=== PATIENT | female | born 1930 | race Caucasian/White ===

== ENCOUNTER 2017-01-17 14:32 | Inpatient (IN) | payer MEDICARE, OTHER ==
[~2017-01-17] VITALS: Ht 170.2 cm; Wt 72.4 kg
[~2017-01-17 14:32] MED LIST: ASPI81TA PO; ATOR1TAB21 PO; BYST5TAB2 PO; CARD180C4 PO; CARD300C4 PO; CITRACAL PO; CITRTAB15 PO; COLA100C5 PO; CORE20CA PO; CORE6.25 PO; COUM1TAB19 PO; DESI100T PO; DESI25TA59 PO; DIGO0.127 PO; FERR1TAB8 PO; FLUV100T2 PO; FURO40TA2 PO; HEPA10004 SC; IMOD2TAB16 PO; K-TA1TAB PO; KLOR1TAB69 PO; LANS15CA PO; LASI40TA PO; LIPI20TA PO; MULT1TAB8 PO; PREV1CAP PO; TYLE325T5 PO; TYLE500T78 PO; VITA500C24 PO; XARE15TA PO; ZOFR4SOL IV; [UNRECOGNIZED DRUG - CODE] PO; [UNRECOGNIZED DRUG - CODE] PO
[2017-01-17] MEDS ORDERED: MORPHINE 2 MG/ML 1ML SYRINGE IV ONE (14:45)
[2017-01-17] MEDS ORDERED: ONDANSETRON 4MG/2ML VIAL (J2405) IV ONE ×2 (14:45→15:45)
[2017-01-17] MEDS ORDERED: FURO20TA2 PO (14:51)
--- NOTE | 2017-01-17 16:19 | REP ---
Clinical: Trauma. Technique: AP, lateral and bilateral oblique views of the right wrist. Findings: Comminuted Colles' fracture of the distal radius with posterior angulation and surrounding soft tissue swelling noted. Underlying osteopenia and degenerative changes are appreciated the carpal bones appear intact. Impression: Comminuted Colles' fracture of the distal radius. Signed by Helder Sandhu MD 01/17/2017 04:10 P
--- NOTE | 2017-01-17 18:14 | ECGEPIP ---
Stationary ECG Study [facility] - ED Test Date: 2017-01-17 Pat Name: PUMA DUCKWORTH Department: Room: - Gender: F Director Of It Operations: alondra : 1930 Requested By: Michelle Martin Order Number: [id number] Reading MD: Michelle Martin Measurements Intervals [place] Rate: 66 P: NC: 0 QRS: -31 QRSD: 102 T: 12 QT: 385 QTc: 404 Interpretive Statements ATRIAL FIBRILLATION MARKED LEFT AXIS DEVIATION MINIMAL VOLTAGE CRITERIA FOR LVH, CONSIDER NORMAL VARIANT DECREASED RATE 06/01/16 Electronically Signed On 01-17-2017 18:14:10 EDT by Michelle Martin
[2017-01-17] MEDS ORDERED: ASPI1TAB PO (18:30)
[2017-01-17] MEDS ORDERED: COLA100C5 PO (18:30)
[2017-01-17] MEDS ORDERED: MORPHINE 2 MG/ML 1ML SYRINGE IV PRN (18:45)
[2017-01-17] MEDS ORDERED: ACETAMINOPHEN 500 MG TAB PO PRN (18:45)
[2017-01-17] MEDS ORDERED: BISACODYL 5 MG TAB PO PRN (18:45)
[2017-01-17] MEDS ORDERED: DOCUSATE SODIUM 100 MG CAP PO PRN (18:45)
[2017-01-17] MEDS ORDERED: ONDANSETRON 4MG/2ML VIAL (J2405) IV PRN (18:45)
[2017-01-17 18:54] LABS: MEAN CORPUSCULAR HGB CONC 33.1 g/dl (32.0-36.5); MEAN CORPUSCULAR VOLUME 87.6 fl (80.0-96.0)
[2017-01-17 19:05] LABS: INR 1.91
--- NOTE | 2017-01-17 19:09 | REP ---
Clinical: Preoperative assessment . Comparison: 06/01/2016 . Technique: PA and lateral. Findings: The mediastinum includes stable moderate hiatal hernia. The cardiac silhouette is normal. Airway is midline and patent. The lung hutchins demonstrate chronic stable changes without acute consolidation, effusion, or pneumothorax. The skeletal structures are intact and normal. Impression: Chronic changes. No acute cardiopulmonary process. Signed by Helder Sandhu MD 01/17/2017 07:00 P
[2017-01-17 19:31] LABS: CREATININE FOR GFR 1.13 MG/DL (0.55-1.02); DIGOXIN LEVEL 1.1 NG/ML (0.5-2.0); GLOMERULAR FILTRATION RATE 48.8 (>32); POTASSIUM SERUM 4.3 MEQ/L (3.5-5.1)
[2017-01-17 20:10] VITALS: BP 118/55
[2017-01-17] MEDS: CARVedilol 6.25 MG TAB PO SCH (20:51)
[2017-01-17] MEDS ORDERED: DESIPRAMINE 25 MG TAB PO SCH (21:00)
[2017-01-17] MEDS ORDERED: fluvoxaMINE MALEATE 50 MG TAB PO SCH (21:00)
[2017-01-17] MEDS ORDERED: PHYTONADIONE 2.5 MG **1/2 TAB PO ONE (22:15)
[2017-01-17] MEDS ORDERED: PHYTONADIONE 5 MG TAB PO ONE (22:45)
--- NOTE | 2017-01-17 23:30 | HPE ---
DATE OF ADMISSION: 01/17/2017 PRIMARY CARE PROVIDER: Dr. Bunny Chavarria. CHIEF COMPLAINT: Right wrist pain. HISTORY OF PRESENT ILLNESS: The patient is an 86-year-old female who presented with right hand pain after a fall at home. She states that while she was descending down a few steps, she slipped, fell and landed on her right side. When she finally got up, she realized that she had pain on the right wrist and she came to the emergency department (ED) to be evaluated. An x-ray revealed a Colles fracture of the distal radius. She was given morphine for pain, was seen by orthopedic surgeon, Dr. Haley, who has planned for Colles reduction with external fixation of the right wrist in the morning. The patient denies headache, blurry vision, chest pain, cough, fever, chills, nausea or vomiting, diarrhea. PAST MEDICAL HISTORY: 1. Atrial fibrillation on anticoagulation with Xarelto. 2. History of gastrointestinal (GI) bleed secondary to non-steroidal anti-inflammatory drugs (NSAIDs) and Coumadin. 3. History of cerebrovascular accident (CVA) 3-4 years ago without residual weakness. 4. History of dyslipidemia. 5. History of gastroesophageal reflux disease (GERD). 6. Depression. PAST SURGICAL HISTORY: 1. Bilateral mastectomy, right side in 1998, left side in 2000. 2. Appendectomy. 3. Cholecystectomy. 4. Squamous cell cancer status post resection. FAMILY HISTORY: Mother had heart disease, at age 46. Father also had heart disease, at age 72. No history of malignant cancers or osteoporosis. SOCIAL HISTORY: The patient denies smoking, alcohol abuse and recreational drug use. She denies any recent travel or sick contacts. She lives with her . 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 ALLERGIES TO MEDICATIONS: SULFA and IODINE. HOME MEDICATIONS: - Xarelto 15 mg once a day - Citrucel Plus one tablet daily - lansoprazole 30 mg tablet once a day - multivitamin one tablet once daily - acetaminophen 500 mg two tablets by mouth at bedtime as needed for pain - aspirin 81 mg once a day - atorvastatin 20 mg once daily - carvedilol 6.25 mg by mouth twice a day - desipramine 25 mg tablet, she takes (please verify) mg by mouth at bedtime - digoxin 0.125 mg tablet daily - docusate sodium 100 mg once a day for constipation - fluvoxamine 100 mg daily and 200 mg at bedtime - Lasix 20 mg once a day - potassium chloride 20 mEq every other day PHYSICAL EXAMINATION: VITAL SIGNS: Blood pressure 112/56, pulse 84, respiratory rate 18, oxygen saturation 94% on room air, temperature 97.2 degrees Fahrenheit. GENERAL: She is alert and oriented to person, place, time and circumstance, in mild distress secondary to pain in the right wrist. She is lying comfortably in bed. HEENT: Pupils are equal, round and reactive to light. Extraocular muscles are intact. Anicteric sclerae. Mucous membranes are dry. NECK: No audible bruits appreciated in her neck. No adenopathy. CARDIOVASCULAR SYSTEM: S1, S2 present. Rate is irregular. RESPIRATORY SYSTEM: Lungs are clear to auscultation bilaterally. GASTROINTESTINAL (GI): Abdomen is soft, nontender, nondistended. Bowel sounds are normal. No guarding, no rebound. RECTAL EXAMINATION: Deferred. GENITOURINARY (): Deferred. MUSCULOSKELETAL SYSTEM: She does have bilateral pedal edema. She has no calf tenderness or cyanosis. She does have dressing around her right wrist. As a result, she has limited motion of that wrist. NEUROLOGY: No focal findings. No sensory deficits. SKIN: There are multiple skin tags on the face and the neck. The skin is also warm and dry. LABORATORY DATA: Hematology: White blood cell count 12, hemoglobin 11.4, hematocrit 34.4, platelets 298. Chemistry: Sodium 141, potassium 4.3, chloride 105, bicarbonate 28, BUN 22, creatinine 1.13. Fasting glucose 125, calcium 9.0. Coagulopathy: INR 1.91, PT 22.5. Toxicology: Digoxin level 1.1. IMAGING: Chest x-ray with chronic changes. No acute cardiopulmonary disease. X-ray of the wrist: Comminuted Colles fracture of the distal radius. IMPRESSION: 1. Right distal Colles radius fracture. 2. History of chronic atrial fibrillation. Rate is controlled. Patient is on anticoagulation with Xarelto, which is currently being held in preparation for surgery. 3. History of essential hypertension. Blood pressure is stable. 4. History of gastroesophageal reflux disease and dyslipidemia, also stable on current medications. 5. Medical clearance. PLAN: The patient is admitted to medical/surgical floor. Continue morphine as needed for pain control. Resume her needed chronic medications except for Xarelto in preparation for surgery. Surgery was discussed with the patient which includes but not limited to infection, excessive bleeding, even . The patient understands and is willing to undergo surgery. Given her age and heart disease, she falls into a moderate risk for an intermediate orthopedic risk of surgery. INR level happens to be 1.9. She will be getting 2.5 mg of vitamin K tonight, and INR to be followed up in the morning. It would be advisable to wait 48 hours for the cessation of Xarelto to initiate surgery.
[2017-01-18 06:00] VITALS: BP 132/65
[2017-01-18 06:17] LABS: BASO % 0.4 % (0.0-1.0); EOS # 0.1 K/mm3 (0.0-0.50); EOS % 1.5 % (0.0-3.0); INR 1.33; LARGE UNSTAINED CELL # 0.1 K/mm3 (0.0-0.4); LARGE UNSTAINED CELL % 1.3 % (0.0-4.0); LYMPH # 1.5 K/mm3 (1.5-4.5); LYMPH % 15.5 % (24.0-44.0); MEAN CORPUSCULAR HEMOGLOBIN 29.1 pg (27.0-33.0); MEAN CORPUSCULAR HGB CONC 33.1 g/dl (32.0-36.5); MEAN CORPUSCULAR VOLUME 87.9 fl (80.0-96.0); MONO # 0.6 K/mm3 (0.0-0.8); MONO % 6.3 % (0.0-5.0); NEUTROPHILS # 6.9 K/mm3 (1.8-7.7); PLATELET COUNT, AUTOMATED 298 k/mm3 (150-450); WHITE BLOOD COUNT 9.2 K/mm3 (4.0-10.0)
[2017-01-18 06:38] LABS: ALBUMIN 2.8 GM/DL (3.2-5.2); ALBUMIN/GLOBULIN RATIO 0.72 (1.00-1.93); BILIRUBIN,TOTAL 0.3 MG/DL (0.2-1.0); CALCIUM LEVEL 8.7 MG/DL (8.8-10.2); CREATININE FOR GFR 1.04 MG/DL (0.55-1.02); GLOMERULAR FILTRATION RATE 53.7 (>32); POTASSIUM SERUM 3.7 MEQ/L (3.5-5.1); TOTAL PROTEIN 6.7 GM/DL (6.4-8.2)
[2017-01-18] MEDS ORDERED: ACETAMINOPHEN TAB 650MG DOSE (2X325MG) PO PRN (08:00)
[2017-01-18] MEDS ORDERED: MORPHINE 2 MG/ML 1ML SYRINGE IV PRN (08:00)
[2017-01-18] MEDS ORDERED: PERCOCET 5MG/325MG TAB PO PRN (08:00)
[2017-01-18] MEDS ORDERED: ceFAZolin SOD 1 GM in D5W MINI-BAG PLUS 50 ML IV ONE (08:00)
[2017-01-18 08:23] VITALS: BP 134/83
[2017-01-18] MEDS: CARVedilol 6.25 MG TAB PO SCH (08:23)
[2017-01-18] MEDS ORDERED: BUPIVACAINE/EPIN 0.25% 30 ML VIAL As Ordered ONE (08:40)
[2017-01-18] MEDS ORDERED: ceFAZolin 1GM INJ (J0690) As Ordered ONE (08:40)
[2017-01-18] MEDS ORDERED: LIDOCAINE 2% INJ 100 MG/5 ML SDV (FOR ANES.) As Ordered ONE (08:42)
[2017-01-18] MEDS ORDERED: PROPOFOL 200 MG/20 ML VIAL As Ordered ONE (08:42)
[2017-01-18] MEDS ORDERED: ONDANSETRON 4MG/2ML VIAL (J2405) As Ordered ONE (08:42)
[2017-01-18] MEDS ORDERED: fentaNYL 100 MCG/2 ML INJECTION (J3010) As Ordered ONE ×2 (08:43→11:16)
[2017-01-18] MEDS ORDERED: MIDAZOLAM INJ 2 MG/2 ML VIAL (J2250) As Ordered ONE (08:43)
[2017-01-18] MEDS ORDERED: ASPIRIN 81 MG ENTERIC TAB PO SCH (09:00)
[2017-01-18] MEDS ORDERED: FUROSEMIDE 20 MG TAB PO SCH (09:00)
[2017-01-18] MEDS ORDERED: DOCUSATE SODIUM 100 MG CAP PO SCH (09:00)
[2017-01-18] MEDS ORDERED: PANTOPRAZOLE 40MG TAB (PROTONIX) PO SCH (09:00)
[2017-01-18] MEDS ORDERED: ASCORBIC ACID 500 MG TAB PO SCH (09:00)
[2017-01-18] MEDS ORDERED: POTASSIUM CHLORIDE 10 MEQ SR TABLET PO SCH (09:00)
[2017-01-18] MEDS ORDERED: fluvoxaMINE MALEATE 50 MG TAB PO SCH (09:00)
[2017-01-18] MEDS ORDERED: ATORVASTATIN 20 MG TAB PO SCH (09:00)
[2017-01-18] MEDS ORDERED: DIGOXIN 0.125 MG TAB PO SCH (09:00)
[2017-01-18] MEDS ORDERED: ePHEDrine SULFATE 25 MG/5 ML(5MG/ML) SYRINGE As Ordered ONE (10:03)
[2017-01-18] MEDS ORDERED: ONDANSETRON 4MG/2ML VIAL (J2405) IV PRN (11:00)
[2017-01-18] MEDS ORDERED: fentaNYL 100 MCG/2 ML INJECTION (J3010) IV PRN (11:00)
--- NOTE | 2017-01-18 11:26 | REP ---
Clinical: Status post fixation. Technique: Real time fluoroscopic imaging. Findings: Intraoperative fluoroscopic images demonstrate the patient to be status post fixation for distal radial metaphyseal fracture. Satisfactory alignment is appreciated. Total fluoroscopic time 25 seconds. Impression: Status post fixation. Signed by Helder Sandhu MD 01/18/2017 11:17 A
[2017-01-18 12:00] VITALS: BP 136/79
[2017-01-18 12:30] VITALS: BP 141/94
[2017-01-18 13:00] VITALS: BP 150/82
[2017-01-18 14:00] VITALS: BP 122/54
--- NOTE | 2017-01-18 15:28 | IPN ---
DATE: 01/18/2017 SUBJECTIVE: Today the patient tells me that she has some achiness on the right wrist, but otherwise she is doing quite well. Has no complaints. She is eager to go and get the surgery completed this morning. OBJECTIVE: VITAL SIGNS: Temperature 98.4, pulse 86, respiratory rate 20, blood pressure 132/65, oxygen saturation 95% on room air. GENERAL: She is a pleasant, elderly female sitting up in bed, wearing an [place] wrap. She does not appear to be in acute distress. HEENT: Cranial nerves III through XII are grossly intact. She has moist mucous membranes. No elevation of jugular venous pulse (JVP). CARDIOVASCULAR: S1, S2, irregularly irregular. No distant heart sounds are appreciated. RESPIRATORY: Exam is clear. ABDOMEN: Benign. EXTREMITIES: Her right upper extremity is [place] wrapped. Dressing is clean, dry and intact. LABORATORY DATA: Today, WBC 9.2, hemoglobin 10.9, hematocrit 21.9, platelet count 298. Chemistry panel: Sodium 142, potassium 3.7, chloride 105, bicarbonate 32, BUN 21, creatinine 1.0. INR this morning is 1.3. IMAGING: A wrist x-ray yesterday revealed comminuted Colles fracture of the distal radius. Preoperative chest x-ray reveals chronic changes. ASSESSMENT AND PLAN: This is an 86-year-old female status post mechanical fall. 1. Mechanical fall and Colles fracture. She slipped while climbing her four steps to enter her home which were slippery. She does have a right distal Colles fracture. She has been seen by Dr. Haley of orthopedic surgery and the plan is to go to the operating room this morning. I have written a paper note in the chart, stating that the patient although she is quite a poor historian, tells me she was able to climb two flights of stairs without difficulty. Given her comorbidities, she has moderate risk for perioperative events; however, she requires no further testing prior to going to the operating room. Normally a 24-hour watch period off Xarelto is needed. The patient tells the nurses she is unable to recall when she last took her Xarelto. She tells me that she last took it yesterday at 1 p.m. but before breakfast. She informs orthopedic surgery that she had taken it the day before, before breakfast. She was in the emergency room by 2:30 in the afternoon yesterday. We will defer to orthopedic surgery regarding bleeding risk and the most appropriate timing for surgery. 2. Atrial fibrillation. The patient's Xarelto is currently on hold. She is rate controlled with digoxin. We will restart the Xarelto in the near future. Please note she is on Coreg. 3. Hypertension. She is on Coreg, 4. Gastroesophageal reflux disease. The patient is on Protonix. 5. Dyslipidemia. The patient is on Lipitor. 6. History of cerebrovascular accident (CVA) without residual deficits. The patient is on aspirin and statin. 7. Depression. The patient is on fluvoxamine and Norpramin. DISPOSITION: Postoperatively, the patient will receive physical therapy/occupational therapy (PT/OT). She likely will be discharged back to her previous living environment when cleared by them and orthopedic surgery.
[2017-01-18] MEDS ORDERED: AMIODARONE HCL 150 MG/100 ML PREMIXED BAG (NEXTERONE) ONE (18:49)
[2017-01-18] MEDS ORDERED: SODIUM BICARBONATE 8.4% INJ 50MEQ 50 ML VIAL ONE (18:49)
[2017-01-18] MEDS ORDERED: AMIODARONE 150MG/3ML INJ (J0282) ONE (18:49)
[2017-01-18] MEDS ORDERED: EPINEPHrine 1MG/10ML SYRINGE 1.5IN ONE (18:49)
--- NOTE | 2017-01-18 21:31 | DSES ---
DATE OF ADMISSION: 01/17/2017 DATE OF : 01/18/2017 CAUSE OF : Aspiration. SECONDARY CAUSE: Respiratory arrest. HOSPITAL COURSE: The patient is an 86-year-old female with a history of atrial fibrillation and associated CVA several years ago, gastrointestinal bleed, dyslipidemia, gastroesophageal reflux disease (GERD), depression, hypertension, who presented to the hospital after having a mechanical fall while slipping on some slippery steps at home, fracturing her right wrist. She was risk stratified this morning by myself and last evening by Dr. Carey. She was felt to be moderate risk with no further testing required prior to proceeding to surgery. I did speak with Dr. Haley following her surgery and she had tolerated the procedure very well and his case was uncomplicated and no excessive bleeding was noted. The patient, postoperatively, did well in the postanesthesia care unit and on the medical floor. She did not have significant pain. This afternoon following surgery, she received a single Percocet, but was requiring no IV pain medication. She did eat lunch, which she tolerated quite well in the presence of her . This evening the patient was eating spaghetti and zucchini and the stated that she began to choke. When she became unresponsive, he did leave the room and ask for a nurse to come and help. Nursing staff from [address] [place] [address] presented and found the patient unresponsive and called the [employer] at 6:00 p.m. I was notified about the change in the patient's status by the nursing glass cut off supervisor at 6:17 p.m. I was present at bedside by 6:[address] Carey was present at bedside at the time of my arrival. In the interim, the patient had been undergoing advanced cardiac life support ( ACLS). She received several cycles of epinephrine, amiodarone bolus and bicarbonate. Dr. Queen from the emergency room graciously presented to bedside to perform endotracheal intubation. During intubation, a significant amount of food particle matter was removed from the airway. The patient was briefly able to have return of circulation but unstable rhythm and quickly returned to pulseless v-tach. When I presented to the bedside after being brought up to speed with the situation, I did speak with the patient's , who was sitting next to her throughout the entire resuscitative efforts and during the initial choking episode. I did explain to him that it had been 30 minutes without any significant improvement or return of circulation and I did not feel that any further efforts would benefit the patient and he agreed with cessation of efforts. The patient was pronounced. Next of kin is bedside and aware of the situation. He will notify additional family. I did personally speak with the [facility] office who agreed with the cause of after hearing all pertinent details of the case from both myself and the nursing glass cut off supervisor and agreed there was no role for autopsy in this unfortunate case. I did call and speak with Dr. Haley and informed him of the events that occurred. SUMAYA
--- NOTE | 2017-01-19 08:30 | ER ---
DATE OF CONSULTATION: CHIEF COMPLAINT: Right wrist pain. HISTORY OF PRESENT ILLNESS: 86-year-old patient from [place] who fell at home after coming out of the door. She clarified that she did not fall down the steps, she fell near the steps and landed on her right upper extremity. No loss of consciousness. Wrist pain. She came to the ER to be evaluated. Imaging studies reflecting comminuted distal radius with significant displacement apex anterior 45 degrees angulation. MEDICAL HISTORY: Atrial fibrillation on Xarelto. GI bleed. Cerebrovascular accident. Dyslipidemia. Reflux. Depression. Forgetfulness since her cerebrovascular accident/trouble with short-term memory since cerebrovascular accident. Breast cancer. PAST SURGICAL HISTORY: Includes Bilateral mastectomies. Appendectomy. Cholecystectomy. Resection of squamous cell cancer. FAMILY HISTORY: Not contributory. SOCIAL HISTORY: Does not smoke or drink. She is accompanied by her of 59 years. 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 ALLERGIES: SULFA, IODINE. MEDICATIONS AT HOME: Include - Xarelto Citrucel - lansoprazole - multivitamins - Tylenol - aspirin 81 mg daily - atorvastatin - carvedilol - desipramine - digoxin - Colace - fluvoxamine - Lasix - potassium CLINICAL EXAMINATION: She is alert, oriented and cooperative. Mood and affect are appropriate. Very pleasant. She did have trouble remembering or not whether she had breakfast in the morning, however both the patient and her suggest that this level of forgetfulness short-term items is typical since her stroke. She did not have any facial trauma or deformity and she did not have any shortness of breath. Cardiac was to irregular about 78 beats per minute. Palpable at the right and the left upper extremity and right wrist swelling and deformity. No open wounds to sensate. No trauma about the elbow. There appears to be an isolated trauma. Abdomen soft. Extremities: Trace edema ankle. LABORATORY DATA: The patient had an INR of 0.91 in the emergency department. IMAGING: X-rays as above. IMPRESSION: Distal radius fracture right upper extremity. Significant medical comorbidities but otherwise functional 86-year-old woman. RECOMMENDATIONS: I had a gus discussion with the patient as well as her about different treatment options ranging from casting, in my opinion this type of the fracture would be casted for about 3-4 weeks. We talked about other options including surgical fixation. I think in this setting external fixator would be appropriate at the advantage of avoiding a long-arm cast for several weeks. They elected to proceed with the surgery. We completed a preoperative packet and the consent document which involved a gus discussion of the pathology involved, treatment options including casting or doing a metal plate. The risks including but not limited to pain, failure, infection, bleeding blood loss, incomplete relief of symptoms need for more surgery and other problems. The patient agreed to surgery. The signed as her customer relations representative as the patient's right upper extremity is fractured. Coordinated care with hospitalist service, Dr. Carey. Coordinated care with the operating room. We will plan doing the surgery the following day after medical optimization. SUMAYA
--- NOTE | 2017-01-19 08:58 | RO ---
DATE OF PROCEDURE: 01/18/2017 PREOPERATIVE DIAGNOSIS: Comminuted right upper extremity distal radius fracture. POSTOPERATIVE DIAGNOSIS: Comminuted right upper extremity distal radius fracture. PROCEDURE: Closed reduction of fracture and placement of external fixator. SURGEON: Emir Haley MD BUGGY LADLE TENDER: ANESTHESIA: General, Dr. Matthews. COMPLICATIONS: None. ESTIMATED BLOOD LOSS: Less than 20 mL. No tourniquet inflated INDICATIONS: Comminuted displaced right distal radius fracture in a functional right handed octogenarian. Consent reviewed as documented and the history and physical. OPERATIVE COURSE: Identified in holding area, site and side verified, brought to the operating room. Once anesthesia was administered, we accomplished a time out. Next, she was sterilely prepped and draped in the usual fashion. Next, incisions were outlined over the radial metaphysis as well as the second metacarpal. The incisions were infiltrated with 0.25% Marcaine with epinephrine. Radial incision made with a 10 blade knife, developed down through skin and subcuticular tissues. Nerve was protected. Dissection continued exposing the radial metaphysis. Next, soft tissue protectors were utilized to drill and place the proximal pair of pins for the Angelia external fixator. Next, we turned our attention distal where the similar 3 cm longitudinal incision was made over the diaphysis of the second metacarpal and similarly soft tissues were protected and the short pins were drilled and placed in the second metacarpal. Fluoroscopy was utilized to verify and adjust pin placement. Next, closed reduction was accomplished and fluoroscopy was utilized to verify reduction. Next, fixator was assembled and the computer repair technician tightened the fixator while I held the extremity in reduction. Final fluoroscopic images were taken reflecting improved alignment distal radius. Next, irrigation was accomplished, wounds were closed with interrupted stitch. Sterile dressing was applied. The patient was extubated and moved to the recovery room in good condition. For further details, please refer to medical record.
== END 2017-01-18 18:30 | disposition expired | DRG 512 ==
LOC: M ED 14:32 → M ED INP 18:36 → M MSPAV 20:11
PROVIDERS: ADMIT Hospitalist; ATTEND Internal Medicine
PROC: 0PSH05Z Reposition Right Radius with External Fixation Device, Open Approach (ICD-10-PCS; principal; 2017-01-18 08:00)
DX: S52.531A Colles' fracture of right radius, initial encounter for closed fracture (principal); I10 Essential (primary) hypertension; Z86.73 Personal history of transient ischemic attack (TIA), and cerebral infarction without residual deficits; E78.5 Hyperlipidemia, unspecified; K21.9 Gastro-esophageal reflux disease without esophagitis; F32.9 Major depressive disorder, single episode, unspecified; W01.0XXA Fall on same level from slipping, tripping and stumbling without subsequent striking against object, initial encounter; Y92.230 Patient room in hospital as the place of occurrence of the external cause; T17.220A Food in pharynx causing asphyxiation, initial encounter; Z79.01 Long term (current) use of anticoagulants; Z88.2 Allergy status to sulfonamides; Z88.8 Allergy status to other drugs, medicaments and biological substances; I48.2 Chronic atrial fibrillation